=== PATIENT | male | born 1960 | race Caucasian/White ===

== ENCOUNTER → 2017-01-20 | Outpatient (CLI) | payer OTHER | END | disposition disaster alternative care site (69) | LOC: GLAB 01-19 05:17 | DX: Z51.81 Encounter for therapeutic drug level monitoring (principal); B20 Human immunodeficiency virus [HIV] disease; Z79.899 Other long term (current) drug therapy ==

== ENCOUNTER → 2017-03-28 | Outpatient (CLI) | payer OTHER | END | disposition disaster alternative care site (69) | LOC: GLAB 12:20 | DX: Z51.81 Encounter for therapeutic drug level monitoring (principal); R75 Inconclusive laboratory evidence of human immunodeficiency virus [HIV]; Z79.899 Other long term (current) drug therapy ==